=== PATIENT | female | born 1945 | race Caucasian/White ===

== ENCOUNTER 2020-02-08 22:36 | Inpatient (IN) | payer MEDICARE ==
[~2020-02-08] VITALS: Ht 172.7 cm; Wt 70.8 kg
[2020-02-09 01:50] LABS: BASOPHILS % 0.5 % (0.0-2.0); EOSINOPHILS % 0.2 % (0.0-5.0); HEMATOCRIT. 21.8 % (36.0-48.0); HEMOGLOBIN. 7.3 g/dL (12.0-16.0); LYMPHOCYTES % 13.3 % (20.0-50.0); MEAN CORPUSCULAR HEMOGLOBIN 30.2 pg (28.0-32.0); MEAN CORPUSCULAR VOLUME 89.9 fL (81.0-99.0); MEAN PLATELET VOLUME 8.4 fl (7.4-10.4); MONOCYTES % 5.6 % (2.0-8.0); NEUTROPHILS % 80.4 % (40.0-76.0); PLATELET 157 x1000/uL (130-400); RED BLOOD CELL COUNT 2.43 mill/uL (4.2-5.4)
[2020-02-09 01:55] LABS: CHLORIDE 100 mEq/L (98-107)
[2020-02-09 02:35] LABS: PROTHROMBIN TIME 10.9 sec (9.6-11.0)
[2020-02-09] MEDS ORDERED: GUAIFENESIN/CODEINE 200-20MG/10ML UDC PO PRN ×2 (13:00→14:28)
[2020-02-09] MEDS: INSULIN LISPRO 100 UNITS/ML SUBCUT SCH ×2 (13:20→19:48)
[2020-02-09] MEDS: BLOOD SUGAR DIAGNOSTIC STRIP TEST SCH ×2 (13:45→19:48)
[2020-02-09] MEDS ORDERED: GUAIFENESIN/CODEINE 100-10MG/5ML UDC PO PRN (14:00)
[2020-02-09 14:23] LABS: BG BASE EXCESS -5.8 mmol/L (-2.0-2.0); BG CARBOXYHEMOGLOBIN 0.8 % (0.5-1.5); BG FRACTION INSPIRED OXYGEN 100; BG HCO3 ACT 18.8 mmol/L (22.0-26.0); BG METHEMOGLOBIN 0.1 % (0.0-1.5); BG OXYGEN SATURATION 83.9 % (92.0-98.5); BG OXYHEMOGLOBIN 83.1 % (94.0-97.0); BG PCO2 32.9 mmHg (35.0-45.0); BG PH 7.374 (7.350-7.450); BG PO2 51.5 mmHg (75.0-100.0); BG SAMPLE SITE RIGHT RADIAL; BG TOTAL HEMOGLOBIN 8.1 g/dL (12.0-18.0); BG VENT MODE MASK - NRB
[2020-02-09] MEDS ORDERED: HYDROCODONE/ACETAMINOPHEN 5/325MG TABLET PO PRN (15:45)
[2020-02-09] MEDS ORDERED: ACETAMINOPHEN 325MG TABLET PO PRN (15:45)
[2020-02-09] MEDS ORDERED: ONDANSETRON HCL 4MG/2ML INJ IV PRN (15:45)
[2020-02-09] MEDS ORDERED: DOCUSATE SODIUM 100MG CAPSULE PO PRN (15:45)
[2020-02-09] MEDS ORDERED: CEFEPIME 1,000 MG in DEXTROSE 5% WATER 50 ML IV SCH (16:00)
[2020-02-09] MEDS ORDERED: ENOXAPARIN 30MG/0.3ML SYR SUBCUT SCH (16:30)
[2020-02-09 19:12] LABS: BG BASE EXCESS -6.4 mmol/L (-2.0-2.0); BG CARBOXYHEMOGLOBIN 0.1 % (0.5-1.5); BG DEOXYHEMOGLOBIN 24.4 % (0.0-5.0); BG FRACTION INSPIRED OXYGEN 100; BG HCO3 ACT 17.9 mmol/L (22.0-26.0); BG METHEMOGLOBIN 0.3 % (0.0-1.5); BG OXYGEN SATURATION 75.5 % (92.0-98.5); BG OXYHEMOGLOBIN 75.2 % (94.0-97.0); BG PCO2 30.7 mmHg (35.0-45.0); BG PH 7.383 (7.350-7.450); BG PO2 42.5 mmHg (75.0-100.0); BG SAMPLE SITE RIGHT RADIAL; BG TOTAL HEMOGLOBIN 8.7 g/dL (12.0-18.0); BG VENT MODE HIGH FLOW
[2020-02-09] MEDS: DEXAMETHASONE 10 MG/ML VIAL IV SCH (19:52)
[2020-02-10] MEDS: HYDROCORTISONE SOD SUCCINATE 100 MG/2 ML VIAL IV SCH ×4 (02:07→22:19)
[2020-02-10] MEDS: BLOOD SUGAR DIAGNOSTIC STRIP TEST SCH ×5 (02:07→21:00)
[2020-02-10] MEDS: INSULIN LISPRO 100 UNITS/ML SUBCUT SCH ×5 (02:09→22:18)
[2020-02-10] MEDS: INSULIN GLARGINE UD 100 UNITS/ML SYR SUBCUT SCH ×3 (03:50→22:00)
[2020-02-10 05:12] LABS: BASOPHILS % 0.1 % (0.0-2.0); HEMATOCRIT. 25.6 % (36.0-48.0); HEMOGLOBIN. 8.6 g/dL (12.0-16.0); LYMPHOCYTES % 7.8 % (20.0-50.0); MEAN CORPUSCULAR HEMOGLOBIN 30.2 pg (28.0-32.0); MEAN CORPUSCULAR VOLUME 89.4 fL (81.0-99.0); MEAN PLATELET VOLUME 8.1 fl (7.4-10.4); MONOCYTES % 4.3 % (2.0-8.0); NEUTROPHILS % 87.8 % (40.0-76.0); PLATELET 184 x1000/uL (130-400); RED BLOOD CELL COUNT 2.86 mill/uL (4.2-5.4)
[2020-02-10 05:14] LABS: CHLORIDE 100 mEq/L (98-107)
[2020-02-10 05:23] LABS: PHOSPHORUS 6.1 mg/dL (2.5-4.9)
[2020-02-10] MEDS ORDERED: SODIUM BICARBONATE 8.4% 1 MEQ/ML 50ML SYR IV NR (05:30)
[2020-02-10] MEDS: DEXAMETHASONE 10 MG/ML VIAL IV SCH (09:11)
[2020-02-10 10:40] LABS: BG BASE EXCESS -5.1 mmol/L (-2.0-2.0); BG CARBOXYHEMOGLOBIN 0.3 % (0.5-1.5); BG DEOXYHEMOGLOBIN 18.8 % (0.0-5.0); BG FRACTION INSPIRED OXYGEN 99.9; BG HCO3 ACT 18.9 mmol/L (22.0-26.0); BG METHEMOGLOBIN 0.2 % (0.0-1.5); BG OXYGEN SATURATION 81.1 % (92.0-98.5); BG OXYHEMOGLOBIN 80.7 % (94.0-97.0); BG PH 7.402 (7.350-7.450); BG SAMPLE SITE LEFT RADIAL; BG TOTAL HEMOGLOBIN 9.6 g/dL (12.0-18.0); BG VENT MODE MASK - NRB
[2020-02-10 14:13] VITALS: BP 162/67
[2020-02-10 14:52] LABS: BG BASE EXCESS -4.4 mmol/L (-2.0-2.0); BG CARBOXYHEMOGLOBIN 0.3 % (0.5-1.5); BG DEOXYHEMOGLOBIN 1.6 % (0.0-5.0); BG FRACTION INSPIRED OXYGEN 100; BG HCO3 ACT 20.5 mmol/L (22.0-26.0); BG OXYGEN SATURATION 98.4 % (92.0-98.5); BG OXYHEMOGLOBIN 98.1 % (94.0-97.0); BG PCO2 36.7 mmHg (35.0-45.0); BG PH 7.365 (7.350-7.450); BG PO2 143.1 mmHg (75.0-100.0); BG SAMPLE SITE RIGHT RADIAL; BG TOTAL HEMOGLOBIN 9.8 g/dL (12.0-18.0); BG TOTAL RESPIRATORY RATE 32 b/min; BG VENT MODE MASK - BIPAP
[2020-02-10 16:00] VITALS: BP 154/64
[2020-02-10 16:14] VITALS: BP 105/67
[2020-02-10] MEDS: ERGOCALCIFEROL 50000UNITS CAPSULE PO SCH (19:06)
[2020-02-10] MEDS: ASPIRIN 81MG EC TABLET PO SCH (19:06)
[2020-02-10] MEDS: CEFEPIME 1,000 MG in DEXTROSE 5% WATER 50 ML IV SCH (19:08)
[2020-02-10] MEDS: ENOXAPARIN 80MG/0.8ML SYR SUBCUT SCH (19:08)
[2020-02-10 20:00] VITALS: BP 165/68
[2020-02-10] MEDS: ASCORBIC ACID 500 MG TABLET PO SCH (22:18)
[2020-02-10] MEDS: CLONIDINE 0.1MG TABLET PO PRN (22:57)
[2020-02-11] VITALS: BP 146/66
[2020-02-11 04:00] VITALS: BP 150/63
[2020-02-11] MEDS: HYDROCORTISONE SOD SUCCINATE 100 MG/2 ML VIAL IV SCH ×3 (05:39→23:03)
[2020-02-11 06:17] LABS: HEMATOCRIT. 26.8 % (36.0-48.0); HEMOGLOBIN. 8.7 g/dL (12.0-16.0); MEAN CORPUSCULAR HEMOGLOBIN 29.3 pg (28.0-32.0); MEAN CORPUSCULAR VOLUME 89.8 fL (81.0-99.0); MEAN PLATELET VOLUME 8.4 fl (7.4-10.4); PLATELET 190 x1000/uL (130-400); RED BLOOD CELL COUNT 2.99 mill/uL (4.2-5.4); RED CELL DISTRIBUTION WIDTH 15.2 % (11.6-14.6)
[2020-02-11] MEDS ORDERED: INSULIN LISPRO 100 UNITS/ML SUBCUT SCH (07:00)
[2020-02-11] MEDS: BLOOD SUGAR DIAGNOSTIC STRIP TEST SCH ×4 (07:08→21:00)
[2020-02-11] MEDS: INSULIN LISPRO 100 UNITS/ML SUBCUT SCH ×7 (07:11→23:05)
[2020-02-11] MEDS: INSULIN GLARGINE UD 100 UNITS/ML SYR SUBCUT SCH ×3 (07:13→23:06)
[2020-02-11 08:00] VITALS: BP 154/60
[2020-02-11] MEDS: ASPIRIN 81MG EC TABLET PO SCH (08:54)
[2020-02-11] MEDS: DEXAMETHASONE 10 MG/ML VIAL IV SCH (08:54)
[2020-02-11] MEDS: ENOXAPARIN 80MG/0.8ML SYR SUBCUT SCH (08:54)
[2020-02-11] MEDS: ASCORBIC ACID 500 MG TABLET PO SCH ×2 (08:54→23:03)
[2020-02-11] MEDS ORDERED: POTASSIUM CHLORIDE 10MEQ TABLET SR PO NR (10:00)
[2020-02-11] MEDS ORDERED: INSULIN GLARGINE UD 100 UNITS/ML SYR SUBCUT SCH (10:00)
[2020-02-11 12:00] VITALS: BP 152/53
[2020-02-11 15:01] LABS: PLATELET ESTIMATE NORMAL
[2020-02-11 16:00] VITALS: BP 165/71
[2020-02-11] MEDS: CEFEPIME 1,000 MG in DEXTROSE 5% WATER 50 ML IV SCH (17:26)
[2020-02-11 20:00] VITALS: BP 181/73
[2020-02-11] MEDS: CLONIDINE 0.1MG TABLET PO PRN (23:24)
[2020-02-12] VITALS: BP 143/67
[2020-02-12 04:00] VITALS: BP 184/74
[2020-02-12 05:30] VITALS: BP 120/61
[2020-02-12 06:18] LABS: MEAN CORPUSCULAR HEMOGLOBIN 30.1 pg (28.0-32.0); MEAN PLATELET VOLUME 8.3 fl (7.4-10.4); PLATELET 213 x1000/uL (130-400); RED BLOOD CELL COUNT 2.67 mill/uL (4.2-5.4)
[2020-02-12] MEDS: HYDROCORTISONE SOD SUCCINATE 100 MG/2 ML VIAL IV SCH ×3 (06:45→22:43)
[2020-02-12] MEDS: BLOOD SUGAR DIAGNOSTIC STRIP TEST SCH ×4 (06:46→21:00)
[2020-02-12] MEDS: INSULIN LISPRO 100 UNITS/ML SUBCUT SCH ×6 (06:56→22:41)
[2020-02-12] MEDS ORDERED: POTASSIUM CHLORIDE 20MEQ TABLET SR PO NR (09:00)
[2020-02-12] MEDS: ASCORBIC ACID 500 MG TABLET PO SCH ×2 (09:38→22:40)
[2020-02-12] MEDS: ASPIRIN 81MG EC TABLET PO SCH (09:38)
[2020-02-12 11:34] LABS: BG BASE EXCESS -4.4 mmol/L (-2.0-2.0); BG CARBOXYHEMOGLOBIN 0.5 % (0.5-1.5); BG DEOXYHEMOGLOBIN 0.7 % (0.0-5.0); BG FRACTION INSPIRED OXYGEN 100; BG HCO3 ACT 20.6 mmol/L (22.0-26.0); BG METHEMOGLOBIN 0.3 % (0.0-1.5); BG OXYGEN SATURATION 99.3 % (92.0-98.5); BG OXYHEMOGLOBIN 98.5 % (94.0-97.0); BG PCO2 37.4 mmHg (35.0-45.0); BG PH 7.359 (7.350-7.450); BG SAMPLE SITE RIGHT RADIAL; BG TOTAL HEMOGLOBIN 8.2 g/dL (12.0-18.0); BG TOTAL RESPIRATORY RATE 35 b/min; BG VENT MODE MASK - BIPAP
[2020-02-12] MEDS: ENOXAPARIN 80MG/0.8ML SYR SUBCUT SCH (11:36)
[2020-02-12] MEDS: DEXAMETHASONE 10 MG/ML VIAL IV SCH (11:36)
[2020-02-12] MEDS: INSULIN GLARGINE UD 100 UNITS/ML SYR SUBCUT SCH ×2 (11:37→22:56)
[2020-02-12 12:00] VITALS: BP 146/67
[2020-02-12] MEDS: ACETAMINOPHEN 325MG TABLET PO PRN (13:17)
[2020-02-12 16:00] VITALS: BP 208/65
[2020-02-12] MEDS: CEFEPIME 1,000 MG in DEXTROSE 5% WATER 50 ML IV SCH (16:18)
[2020-02-12 17:03] LABS: PLATELET ESTIMATE NORMAL
[2020-02-12] MEDS: METOCLOPRAMIDE HCL 10MG/2ML VIAL IV SCH (19:10)
[2020-02-12 20:00] VITALS: BP 184/69
[2020-02-12] MEDS: CLONIDINE 0.1MG TABLET PO PRN (22:40)
[2020-02-13 00:12] VITALS: BP 107/56
[2020-02-13] MEDS: LORAZEPAM 0.5MG TABLET PO PRN (02:49)
[2020-02-13] MEDS: METOCLOPRAMIDE HCL 10MG/2ML VIAL IV SCH ×4 (02:50→19:07)
[2020-02-13 04:00] VITALS: BP 154/57
[2020-02-13] MEDS: HYDROCORTISONE SOD SUCCINATE 100 MG/2 ML VIAL IV SCH ×2 (06:02→13:46)
[2020-02-13] MEDS: BLOOD SUGAR DIAGNOSTIC STRIP TEST SCH ×4 (06:02→21:26)
[2020-02-13] MEDS: INSULIN LISPRO 100 UNITS/ML SUBCUT SCH ×4 (06:22→22:00)
[2020-02-13 06:40] LABS: HEMATOCRIT. 21.9 % (36.0-48.0); HEMOGLOBIN. 7.2 g/dL (12.0-16.0); MEAN CORPUSCULAR HEMOGLOBIN 30.3 pg (28.0-32.0); MEAN CORPUSCULAR VOLUME 92.2 fL (81.0-99.0); MEAN PLATELET VOLUME 8.6 fl (7.4-10.4); PLATELET 264 x1000/uL (130-400); RED BLOOD CELL COUNT 2.37 mill/uL (4.2-5.4); RED CELL DISTRIBUTION WIDTH 15.2 % (11.6-14.6)
[2020-02-13 06:57] LABS: PHOSPHORUS 6.2 mg/dL (2.5-4.9)
[2020-02-13] MEDS ORDERED: INSULIN LISPRO 100 UNITS/ML SUBCUT NR (07:45)
[2020-02-13 08:00] VITALS: BP 141/61
[2020-02-13] MEDS: DEXAMETHASONE 10 MG/ML VIAL IV SCH (08:59)
[2020-02-13] MEDS: ASPIRIN 81MG EC TABLET PO SCH (08:59)
[2020-02-13] MEDS: ENOXAPARIN 80MG/0.8ML SYR SUBCUT SCH (08:59)
[2020-02-13] MEDS: ASCORBIC ACID 500 MG TABLET PO SCH ×2 (09:00→21:59)
[2020-02-13] MEDS: INSULIN GLARGINE UD 100 UNITS/ML SYR SUBCUT SCH ×2 (10:30→22:51)
[2020-02-13 12:00] VITALS: BP 164/68
[2020-02-13] MEDS ORDERED: AMLODIPINE 5MG TABLET PO NR (13:30)
[2020-02-13 16:00] VITALS: BP 159/66
[2020-02-13] MEDS: PANTOPRAZOLE SODIUM 40 MG/VIAL IV SCH (19:06)
[2020-02-13] MEDS: CEFEPIME 1,000 MG in DEXTROSE 5% WATER 50 ML IV SCH (19:06)
[2020-02-13 20:00] VITALS: BP 168/71
[2020-02-13] MEDS: AMLODIPINE 5MG TABLET PO SCH (21:59)
[2020-02-13 22:36] LABS: PLATELET ESTIMATE NORMAL
[2020-02-14] VITALS (8 sets, daily range): BP systolic 94–177; BP diastolic 73–95
[2020-02-14] MEDS: LORAZEPAM 0.5MG TABLET PO PRN (00:58)
[2020-02-14] MEDS: METOCLOPRAMIDE HCL 10MG/2ML VIAL IV SCH ×4 (00:58→18:39)
[2020-02-14] MEDS: CLONIDINE 0.1MG TABLET PO PRN (03:29)
[2020-02-14] MEDS ORDERED: INSULIN LISPRO 100 UNITS/ML SUBCUT NR (06:45)
[2020-02-14] MEDS: BLOOD SUGAR DIAGNOSTIC STRIP TEST SCH ×4 (06:46→21:34)
[2020-02-14] MEDS: INSULIN LISPRO 100 UNITS/ML SUBCUT SCH ×4 (06:55→22:16)
[2020-02-14 08:07] LABS: HEMATOCRIT. 21.3 % (36.0-48.0); MEAN CORPUSCULAR HEMOGLOBIN 29.3 pg (28.0-32.0); MEAN CORPUSCULAR VOLUME 89.7 fL (81.0-99.0); MEAN PLATELET VOLUME 8.1 fl (7.4-10.4); PLATELET 306 x1000/uL (130-400); RED BLOOD CELL COUNT 2.37 mill/uL (4.2-5.4); RED CELL DISTRIBUTION WIDTH 15.4 % (11.6-14.6)
[2020-02-14 08:17] LABS: CHLORIDE 96 mEq/L (98-107)
[2020-02-14 08:29] LABS: PHOSPHORUS 4.4 mg/dL (2.5-4.9)
[2020-02-14] MEDS: AMLODIPINE 5MG TABLET PO SCH ×2 (09:45→22:17)
[2020-02-14] MEDS: PANTOPRAZOLE SODIUM 40 MG/VIAL IV SCH ×2 (09:45→22:13)
[2020-02-14] MEDS: DEXAMETHASONE 10 MG/ML VIAL IV SCH (09:45)
[2020-02-14] MEDS: ASCORBIC ACID 500 MG TABLET PO SCH ×2 (11:06→22:16)
[2020-02-14] MEDS: INSULIN GLARGINE UD 100 UNITS/ML SYR SUBCUT SCH ×2 (11:06→22:17)
[2020-02-14] MEDS: HYDRALAZINE HCL 25MG TABLET PO SCH ×2 (11:06→22:17)
[2020-02-14] MEDS: CEFEPIME 1,000 MG in DEXTROSE 5% WATER 50 ML IV SCH (18:38)
[2020-02-14 19:17] LABS: PLATELET ESTIMATE NORMAL
[2020-02-14 20:50] LABS: INR 1.1; PROTHROMBIN TIME 11.4 sec (9.6-11.0)
[2020-02-14] MEDS ORDERED: EPOETIN ALFA 10000UNITS/ML VIAL SUBCUT SCH (21:00)
[2020-02-14 21:06] LABS: HEMATOCRIT 28.5 % (36.0-48.0); HEMOGLOBIN 9.2 g/dL (12.0-16.0)
[2020-02-15] VITALS: BP 141/85
[2020-02-15] MEDS: METOCLOPRAMIDE HCL 10MG/2ML VIAL IV SCH ×4 (00:19→17:39)
[2020-02-15 04:00] VITALS: BP 171/88
[2020-02-15] MEDS: LORAZEPAM 0.5MG TABLET PO PRN ×3 (04:55→22:02)
[2020-02-15 05:42] LABS: PHOSPHORUS 4.4 mg/dL (2.5-4.9)
[2020-02-15] MEDS: CLONIDINE 0.1MG TABLET PO PRN (06:39)
[2020-02-15] MEDS: INSULIN LISPRO 100 UNITS/ML SUBCUT SCH ×4 (06:40→20:54)
[2020-02-15] MEDS: BLOOD SUGAR DIAGNOSTIC STRIP TEST SCH ×4 (06:40→20:55)
[2020-02-15 07:06] LABS: MEAN CORPUSCULAR HEMOGLOBIN 29.6 pg (28.0-32.0); MEAN PLATELET VOLUME 8.4 fl (7.4-10.4); PLATELET 341 x1000/uL (130-400); RED BLOOD CELL COUNT 3.03 mill/uL (4.2-5.4)
[2020-02-15 08:00] VITALS: BP 127/65
[2020-02-15] MEDS: DEXAMETHASONE 10 MG/ML VIAL IV SCH (09:01)
[2020-02-15] MEDS: PANTOPRAZOLE SODIUM 40 MG/VIAL IV SCH ×2 (09:01→17:38)
[2020-02-15] MEDS: AMLODIPINE 5MG TABLET PO SCH (09:02)
[2020-02-15] MEDS: HYDRALAZINE HCL 25MG TABLET PO SCH (09:02)
[2020-02-15] MEDS: ASCORBIC ACID 500 MG TABLET PO SCH ×2 (09:03→20:54)
[2020-02-15] MEDS ORDERED: INSULIN GLARGINE UD 100 UNITS/ML SYR SUBCUT SCH (10:00)
[2020-02-15] MEDS: HYDRALAZINE HCL 50MG TABLET PO SCH ×2 (11:30→13:17)
[2020-02-15 12:00] VITALS: BP 115/57
[2020-02-15] MEDS ORDERED: POTASSIUM CHLORIDE 20MEQ TABLET SR PO NR (13:00)
[2020-02-15] MEDS ORDERED: DILTIAZEM HCL 5MG/ML 5ML VIAL IV NR (13:15)
[2020-02-15] MEDS ORDERED: POTASSIUM CHLORIDE 20MEQ/PACKET PO SCH (14:00)
[2020-02-15] MEDS ORDERED: DILTIAZEM HCL 5MG/ML 5ML VIAL IV SCH (14:00)
[2020-02-15] MEDS ORDERED: ENOXAPARIN 60MG/0.6ML SYR SUBCUT SCH (14:00)
[2020-02-15 14:25] LABS: NUCLEATED RED BLOOD CELLS 5 /100 WBC; PLATELET ESTIMATE NORMAL
[2020-02-15 16:00] VITALS: BP 126/54
[2020-02-15 16:20] LABS: VITAMIN B12 SERUM 1278 pg/mL (211-911)
[2020-02-15 16:48] LABS: FERRITIN 5552 ng/mL (10-291)
[2020-02-15 17:01] LABS: FOLIC ACID (FOLATE) SERUM 5.3 ng/mL (>5.38)
[2020-02-15] MEDS ORDERED: KCL 20MEQ/100ML PREMIX 100 ML IV NR (17:30)
[2020-02-15] MEDS: DILTIAZEM HCL 60MG TABLET PO SCH (17:40)
[2020-02-15] MEDS: MEROPENEM 500 MG in SODIUM CHLORIDE 0.9% 50 ML IV SCH (18:30)
[2020-02-15 20:00] VITALS: BP 134/70
[2020-02-15] MEDS: INSULIN GLARGINE UD 100 UNITS/ML SYR SUBCUT SCH (22:49)
[2020-02-16] VITALS (44 sets, daily range): BP systolic 55–178; BP diastolic 29–98
[2020-02-16] MEDS: DILTIAZEM HCL 60MG TABLET PO SCH (00:05)
[2020-02-16] MEDS: METOCLOPRAMIDE HCL 10MG/2ML VIAL IV SCH ×4 (00:06→17:29)
[2020-02-16] MEDS ORDERED: DILTIAZEM HCL 5MG/ML 5ML VIAL IV SCH ×2 (00:45→08:00)
[2020-02-16] MEDS ORDERED: DILTIAZEM HCL 5MG/ML 5ML VIAL IV PRN (04:00)
[2020-02-16] MEDS: LORAZEPAM 2MG/ML CPJ IV PRN ×2 (05:08→10:24)
[2020-02-16 06:12] LABS: HEMATOCRIT. 24.2 % (36.0-48.0); HEMOGLOBIN. 7.7 g/dL (12.0-16.0); MEAN CORPUSCULAR HEMOGLOBIN 28.9 pg (28.0-32.0); MEAN CORPUSCULAR VOLUME 90.3 fL (81.0-99.0); MEAN PLATELET VOLUME 8.7 fl (7.4-10.4); PLATELET 277 x1000/uL (130-400); RED BLOOD CELL COUNT 2.68 mill/uL (4.2-5.4); RED CELL DISTRIBUTION WIDTH 15.4 % (11.6-14.6)
[2020-02-16] MEDS: INSULIN LISPRO 100 UNITS/ML SUBCUT SCH ×4 (08:10→21:47)
[2020-02-16] MEDS: BLOOD SUGAR DIAGNOSTIC STRIP TEST SCH ×5 (08:39→21:39)
[2020-02-16] MEDS ORDERED: DEXT 5%/0.45% NACL KCL 20MEQ/L 1,000 ML IV ONE (08:45)
[2020-02-16] MEDS ORDERED: INSULIN LISPRO 100 UNITS/ML SUBCUT NR (09:00)
[2020-02-16] MEDS ORDERED: POTASSIUM CHLORIDE INJ 20 MEQ in DEXT 5% WATER 250 ML IV ONE (09:00)
[2020-02-16] MEDS: ASCORBIC ACID 500 MG TABLET PO SCH ×2 (09:00→21:48)
[2020-02-16] MEDS: PANTOPRAZOLE SODIUM 40 MG/VIAL IV SCH ×2 (09:57→17:29)
[2020-02-16] MEDS: DEXAMETHASONE 10 MG/ML VIAL IV SCH (09:57)
[2020-02-16] MEDS: INSULIN GLARGINE UD 100 UNITS/ML SYR SUBCUT SCH ×2 (10:00→22:20)
[2020-02-16] MEDS ORDERED: KCL 20MEQ/100ML PREMIX 100 ML IV NR (10:30)
[2020-02-16] MEDS ORDERED: FENTANYL CITRATE/PF 1,000 MCG in SODIUM CHLORIDE 0.9% 80 ML IV PRN (12:45)
[2020-02-16] MEDS: PROPOFOL 10MG/ML 100ML 100 ML IV PRN ×2 (13:33→23:57)
[2020-02-16] MEDS: DILTIAZEM HCL 125 MG in DEXT 5% WATER 100 ML IV PRN (14:15)
[2020-02-16] MEDS ORDERED: POTASSIUM CHLORIDE 20MEQ/PACKET PO NR (14:45)
[2020-02-16 15:26] LABS: BG BASE EXCESS 0.1 mmol/L (-2.0-2.0); BG CARBOXYHEMOGLOBIN 0.3 % (0.5-1.5); BG DEOXYHEMOGLOBIN 1.1 % (0.0-5.0); BG FRACTION INSPIRED OXYGEN 100; BG HCO3 ACT 26.8 mmol/L (22.0-26.0); BG METHEMOGLOBIN 0.2 % (0.0-1.5); BG OXYGEN SATURATION 98.9 % (92.0-98.5); BG OXYHEMOGLOBIN 98.4 % (94.0-97.0); BG PCO2 54.6 mmHg (35.0-45.0); BG PH 7.309 (7.350-7.450); BG PO2 248.1 mmHg (75.0-100.0); BG SAMPLE SITE RIGHT RADIAL; BG TOTAL HEMOGLOBIN 9.3 g/dL (12.0-18.0); BG VENT MODE VENT - AC
[2020-02-16 17:17] LABS: PLATELET ESTIMATE NORMAL
[2020-02-16] MEDS: FENTANYL CITRATE 2,500 MCG in SODIUM CHLORIDE 0.9% 200 ML IV PRN (17:56)
[2020-02-16] MEDS ORDERED: DILTIAZEM HCL 60MG TABLET PO SCH (18:00)
[2020-02-16] MEDS: DILTIAZEM HCL 30MG TABLET PO SCH (18:00)
[2020-02-16] MEDS: MEROPENEM 500 MG in SODIUM CHLORIDE 0.9% 50 ML IV SCH ×2 (18:44→19:30)
[2020-02-16] MEDS: PHENYLEPHRINE 50 MG in DEXT 5% WATER 245 ML IV PRN (21:27)
[2020-02-16] MEDS: EPOETIN ALFA-EPBX 10,000 UNIT/ML VIAL SUBCUT SCH (21:48)
[2020-02-17] VITALS (96 sets, daily range): BP systolic 91–151; BP diastolic 41–80
[2020-02-17] MEDS: METOCLOPRAMIDE HCL 10MG/2ML VIAL IV SCH ×4 (00:01→17:45)
[2020-02-17] MEDS: DILTIAZEM HCL 30MG TABLET PO SCH ×4 (06:00→17:45)
[2020-02-17 06:16] LABS: MEAN CORPUSCULAR HEMOGLOBIN 29.7 pg (28.0-32.0); MEAN CORPUSCULAR VOLUME 91.9 fL (81.0-99.0); MEAN PLATELET VOLUME 8.7 fl (7.4-10.4); PLATELET 209 x1000/uL (130-400); RED BLOOD CELL COUNT 2.24 mill/uL (4.2-5.4); RED CELL DISTRIBUTION WIDTH 15.4 % (11.6-14.6)
[2020-02-17 06:24] LABS: HEMATOCRIT. 20.6 % (36.0-48.0); HEMOGLOBIN. 6.7 g/dL (12.0-16.0)
[2020-02-17 06:38] LABS: CHLORIDE 101 mEq/L (98-107)
[2020-02-17] MEDS: BLOOD SUGAR DIAGNOSTIC STRIP TEST SCH ×4 (08:07→21:24)
[2020-02-17] MEDS: PANTOPRAZOLE SODIUM 40 MG/VIAL IV SCH ×2 (08:55→17:43)
[2020-02-17] MEDS: INSULIN LISPRO 100 UNITS/ML SUBCUT SCH ×4 (08:55→21:36)
[2020-02-17] MEDS: DEXAMETHASONE 10 MG/ML VIAL IV SCH (08:55)
[2020-02-17] MEDS: ASCORBIC ACID 500 MG TABLET PO SCH ×2 (08:55→21:32)
[2020-02-17 09:58] LABS: BG BASE EXCESS 1.4 mmol/L (-2.0-2.0); BG CARBOXYHEMOGLOBIN 2.2 % (0.5-1.5); BG DEOXYHEMOGLOBIN 2.4 % (0.0-5.0); BG FRACTION INSPIRED OXYGEN 100; BG HCO3 ACT 27.9 mmol/L (22.0-26.0); BG METHEMOGLOBIN 0.2 % (0.0-1.5); BG OXYGEN SATURATION 97.5 % (92.0-98.5); BG OXYHEMOGLOBIN 95.2 % (94.0-97.0); BG PCO2 56.7 mmHg (35.0-45.0); BG PO2 104.2 mmHg (75.0-100.0); BG SAMPLE SITE RIGHT RADIAL; BG TOTAL HEMOGLOBIN 6.9 g/dL (12.0-18.0); BG VENT MODE VENT - AC
[2020-02-17] MEDS: INSULIN GLARGINE UD 100 UNITS/ML SYR SUBCUT SCH ×2 (10:57→21:38)
[2020-02-17] MEDS: FENTANYL CITRATE 2,500 MCG in SODIUM CHLORIDE 0.9% 200 ML IV PRN (11:18)
[2020-02-17] MEDS: ERGOCALCIFEROL 50000UNITS CAPSULE PO SCH (12:43)
[2020-02-17 13:05] LABS: PLATELET ESTIMATE NORMAL
[2020-02-17] MEDS: MIDAZOLAM HCL 100 MG in DEXT 5% WATER 80 ML IV PRN (13:29)
[2020-02-17] MEDS: PHENYLEPHRINE 50 MG in DEXT 5% WATER 245 ML IV PRN (15:23)
[2020-02-17 17:14] LABS: HEMATOCRIT 23.8 % (36.0-48.0); HEMOGLOBIN 7.6 g/dL (12.0-16.0)
[2020-02-17] MEDS: MEROPENEM 500 MG in SODIUM CHLORIDE 0.9% 50 ML IV SCH (17:43)
[2020-02-18] VITALS (98 sets, daily range): BP systolic 76–132; BP diastolic 42–75
[2020-02-18] MEDS: FENTANYL CITRATE 2,500 MCG in SODIUM CHLORIDE 0.9% 200 ML IV PRN ×2 (01:16→16:39)
[2020-02-18 05:34] LABS: HEMATOCRIT. 25.3 % (36.0-48.0); MEAN CORPUSCULAR VOLUME 91.3 fL (81.0-99.0); MEAN PLATELET VOLUME 9.3 fl (7.4-10.4); PLATELET 124 x1000/uL (130-400); RED BLOOD CELL COUNT 2.77 mill/uL (4.2-5.4); RED CELL DISTRIBUTION WIDTH 17.1 % (11.6-14.6)
[2020-02-18 05:51] LABS: CHLORIDE 98 mEq/L (98-107)
[2020-02-18] MEDS: METOCLOPRAMIDE HCL 10MG/2ML VIAL IV SCH ×4 (06:00→18:00)
[2020-02-18] MEDS: DILTIAZEM HCL 30MG TABLET PO SCH ×4 (06:00→21:40)
[2020-02-18] MEDS: MIDAZOLAM HCL 100 MG in DEXT 5% WATER 80 ML IV PRN (07:39)
[2020-02-18] MEDS: BLOOD SUGAR DIAGNOSTIC STRIP TEST SCH ×4 (07:51→21:43)
[2020-02-18] MEDS: PANTOPRAZOLE SODIUM 40 MG/VIAL IV SCH ×2 (08:16→17:52)
[2020-02-18] MEDS: INSULIN LISPRO 100 UNITS/ML SUBCUT SCH ×4 (08:16→21:58)
[2020-02-18] MEDS: DEXAMETHASONE 10 MG/ML VIAL IV SCH (08:16)
[2020-02-18] MEDS: ASCORBIC ACID 500 MG TABLET PO SCH ×2 (08:16→21:50)
[2020-02-18 09:11] LABS: BG BASE EXCESS 0.1 mmol/L (-2.0-2.0); BG CARBOXYHEMOGLOBIN 0.8 % (0.5-1.5); BG DEOXYHEMOGLOBIN 6.7 % (0.0-5.0); BG FRACTION INSPIRED OXYGEN 80; BG HCO3 ACT 26.3 mmol/L (22.0-26.0); BG METHEMOGLOBIN 0.3 % (0.0-1.5); BG OXYGEN SATURATION 93.2 % (92.0-98.5); BG OXYHEMOGLOBIN 92.2 % (94.0-97.0); BG PCO2 50.7 mmHg (35.0-45.0); BG PH 7.332 (7.350-7.450); BG PO2 71.6 mmHg (75.0-100.0); BG SAMPLE SITE RIGHT RADIAL; BG TOTAL HEMOGLOBIN 8.8 g/dL (12.0-18.0); BG TOTAL RESPIRATORY RATE 26 b/min; BG VENT MODE VENT - AC/VC
[2020-02-18] MEDS: INSULIN GLARGINE UD 100 UNITS/ML SYR SUBCUT SCH ×2 (09:57→21:53)
[2020-02-18 11:37] LABS: BG BASE EXCESS -3.2 mmol/L (-2.0-2.0); BG CARBOXYHEMOGLOBIN 0.7 % (0.5-1.5); BG DEOXYHEMOGLOBIN 6.1 % (0.0-5.0); BG FRACTION INSPIRED OXYGEN 100; BG METHEMOGLOBIN 0.3 % (0.0-1.5); BG OXYGEN SATURATION 93.8 % (92.0-98.5); BG OXYHEMOGLOBIN 92.9 % (94.0-97.0); BG PCO2 62.8 mmHg (35.0-45.0); BG PH 7.217 (7.350-7.450); BG PO2 82.6 mmHg (75.0-100.0); BG SAMPLE SITE RIGHT BRACHIAL; BG VENT MODE VENT - AC
[2020-02-18 13:47] LABS: NUCLEATED RED BLOOD CELLS 3 /100 WBC
[2020-02-18 13:48] LABS: PLATELET ESTIMATE SLIGHTLY DECREASED
[2020-02-18] MEDS ORDERED: INSULIN GLARGINE UD 100 UNITS/ML SYR SUBCUT NR (14:00)
[2020-02-18] MEDS: MEROPENEM 500 MG in SODIUM CHLORIDE 0.9% 50 ML IV SCH (17:53)
[2020-02-19] VITALS (93 sets, daily range): BP systolic 83–142; BP diastolic 39–70
[2020-02-19] MEDS: METOCLOPRAMIDE HCL 10MG/2ML VIAL IV SCH ×4 (01:46→18:25)
[2020-02-19] MEDS: DILTIAZEM HCL 30MG TABLET PO SCH ×3 (04:54→22:31)
[2020-02-19 05:21] LABS: BG BASE EXCESS -1.7 mmol/L (-2.0-2.0); BG CARBOXYHEMOGLOBIN 0.3 % (0.5-1.5); BG DEOXYHEMOGLOBIN 1.1 % (0.0-5.0); BG FRACTION INSPIRED OXYGEN 100; BG HCO3 ACT 26.4 mmol/L (22.0-26.0); BG METHEMOGLOBIN 0.1 % (0.0-1.5); BG OXYGEN SATURATION 98.9 % (92.0-98.5); BG OXYHEMOGLOBIN 98.5 % (94.0-97.0); BG PCO2 63.7 mmHg (35.0-45.0); BG PH 7.235 (7.350-7.450); BG PO2 204.7 mmHg (75.0-100.0); BG SAMPLE SITE RIGHT RADIAL; BG TOTAL HEMOGLOBIN 9.7 g/dL (12.0-18.0); BG VENT MODE VENT - AC
[2020-02-19 06:18] LABS: HEMATOCRIT. 25.7 % (36.0-48.0); HEMOGLOBIN. 8.4 g/dL (12.0-16.0); MEAN CORPUSCULAR HEMOGLOBIN 29.4 pg (28.0-32.0); MEAN CORPUSCULAR VOLUME 89.7 fL (81.0-99.0); MEAN PLATELET VOLUME 9.1 fl (7.4-10.4); PLATELET 123 x1000/uL (130-400); RED BLOOD CELL COUNT 2.86 mill/uL (4.2-5.4); RED CELL DISTRIBUTION WIDTH 16.5 % (11.6-14.6)
[2020-02-19 06:31] LABS: PHOSPHORUS 6.5 mg/dL (2.5-4.9)
[2020-02-19] MEDS: FENTANYL CITRATE 2,500 MCG in SODIUM CHLORIDE 0.9% 200 ML IV PRN (09:30)
[2020-02-19] MEDS: DEXAMETHASONE 10 MG/ML VIAL IV SCH (09:44)
[2020-02-19] MEDS: PANTOPRAZOLE SODIUM 40 MG/VIAL IV SCH ×2 (09:44→18:22)
[2020-02-19] MEDS: ASCORBIC ACID 500 MG TABLET PO SCH ×2 (09:44→22:31)
[2020-02-19] MEDS: FOLIC ACID 1MG TABLET PO SCH (09:44)
[2020-02-19] MEDS: INSULIN GLARGINE UD 100 UNITS/ML SYR SUBCUT SCH ×2 (10:55→22:00)
[2020-02-19] MEDS: BLOOD SUGAR DIAGNOSTIC STRIP TEST SCH ×3 (12:25→23:54)
[2020-02-19 12:59] LABS: NUCLEATED RED BLOOD CELLS 1 /100 WBC; PLATELET ESTIMATE SLIGHTLY DECREASED
[2020-02-19] MEDS: INSULIN LISPRO 100 UNITS/ML SUBCUT SCH ×2 (12:59→18:26)
[2020-02-19 13:13] LABS: BG BASE EXCESS 1.9 mmol/L (-2.0-2.0); BG CARBOXYHEMOGLOBIN 0.7 % (0.5-1.5); BG DEOXYHEMOGLOBIN 0.8 % (0.0-5.0); BG FRACTION INSPIRED OXYGEN 100; BG HCO3 ACT 28.4 mmol/L (22.0-26.0); BG METHEMOGLOBIN 0.3 % (0.0-1.5); BG OXYGEN SATURATION 99.2 % (92.0-98.5); BG OXYHEMOGLOBIN 98.2 % (94.0-97.0); BG PCO2 56.3 mmHg (35.0-45.0); BG PH 7.321 (7.350-7.450); BG PO2 220.8 mmHg (75.0-100.0); BG SAMPLE SITE RIGHT RADIAL; BG TOTAL HEMOGLOBIN 8.1 g/dL (12.0-18.0); BG TOTAL RESPIRATORY RATE 30 b/min; BG VENT MODE VENT - AC
[2020-02-19] MEDS ORDERED: MIDAZOLAM HCL 100 MG in SODIUM CHLORIDE 0.9% 80 ML IV PRN (15:15)
[2020-02-19] MEDS: MEROPENEM 500 MG in SODIUM CHLORIDE 0.9% 50 ML IV SCH (18:22)
[2020-02-19] MEDS: EPOETIN ALFA-EPBX 10,000 UNIT/ML VIAL SUBCUT SCH (21:00)
[2020-02-20] VITALS (93 sets, daily range): BP systolic 79–151; BP diastolic 41–81
[2020-02-20] MEDS: METOCLOPRAMIDE HCL 10MG/2ML VIAL IV SCH ×5 (00:02→23:43)
[2020-02-20] MEDS: INSULIN LISPRO 100 UNITS/ML SUBCUT SCH ×5 (00:05→23:45)
[2020-02-20] MEDS: MIDAZOLAM HCL 100 MG in DEXT 5% WATER 80 ML IV PRN ×2 (04:24→22:06)
[2020-02-20] MEDS: FENTANYL CITRATE 2,500 MCG in SODIUM CHLORIDE 0.9% 200 ML IV PRN (04:25)
[2020-02-20] MEDS: BLOOD SUGAR DIAGNOSTIC STRIP TEST SCH ×4 (06:00→23:46)
[2020-02-20] MEDS: DILTIAZEM HCL 30MG TABLET PO SCH ×3 (06:00→22:05)
[2020-02-20 06:07] LABS: CHLORIDE 99 mEq/L (98-107)
[2020-02-20 06:17] LABS: HEMATOCRIT. 25.3 % (36.0-48.0); MEAN CORPUSCULAR HEMOGLOBIN 28.6 pg (28.0-32.0); MEAN CORPUSCULAR VOLUME 90.8 fL (81.0-99.0); MEAN PLATELET VOLUME 9.5 fl (7.4-10.4); PLATELET 95 x1000/uL (130-400); RED BLOOD CELL COUNT 2.78 mill/uL (4.2-5.4); RED CELL DISTRIBUTION WIDTH 16.7 % (11.6-14.6)
[2020-02-20] MEDS: PHENYLEPHRINE 50 MG in SODIUM CHLORIDE 0.9% 245 ML IV PRN (08:30)
[2020-02-20] MEDS: FOLIC ACID 1MG TABLET PO SCH (09:14)
[2020-02-20] MEDS: PANTOPRAZOLE SODIUM 40 MG/VIAL IV SCH ×2 (09:14→17:58)
[2020-02-20] MEDS: ASCORBIC ACID 500 MG TABLET PO SCH ×2 (09:14→22:05)
[2020-02-20 09:49] LABS: BG BASE EXCESS -0.6 mmol/L (-2.0-2.0); BG CARBOXYHEMOGLOBIN 0.7 % (0.5-1.5); BG DEOXYHEMOGLOBIN 1.5 % (0.0-5.0); BG FRACTION INSPIRED OXYGEN 100; BG HCO3 ACT 24.6 mmol/L (22.0-26.0); BG METHEMOGLOBIN 0.1 % (0.0-1.5); BG OXYGEN SATURATION 98.5 % (92.0-98.5); BG OXYHEMOGLOBIN 97.7 % (94.0-97.0); BG PCO2 42.8 mmHg (35.0-45.0); BG PH 7.377 (7.350-7.450); BG PO2 137.8 mmHg (75.0-100.0); BG SAMPLE SITE RIGHT RADIAL; BG TOTAL HEMOGLOBIN 9.2 g/dL (12.0-18.0); BG VENT MODE VENT - AC
[2020-02-20] MEDS: INSULIN GLARGINE UD 100 UNITS/ML SYR SUBCUT SCH ×2 (11:04→22:31)
[2020-02-20 13:24] LABS: PLATELET ESTIMATE DECREASED
[2020-02-20 16:47] LABS: CHLORIDE 102 mEq/L (98-107)
[2020-02-20 16:52] LABS: PHOSPHORUS 7.9 mg/dL (2.5-4.9)
[2020-02-20] MEDS: SEVELAMER CARBONATE 800 MG TABLET PO SCH ×2 (17:58→23:42)
[2020-02-20] MEDS: MEROPENEM 500 MG in SODIUM CHLORIDE 0.9% 50 ML IV SCH (17:59)
[2020-02-20] MEDS: DEXTROSE 50% WATER 50ML SYRINGE IV PRN (18:07)
[2020-02-20] MEDS: IPRATROPIUM/ALBUTEROL 0.5-3(2.5)MG/3ML NEB HHN SCH (22:15)
[2020-02-21] VITALS (104 sets, daily range): BP systolic 64–142; BP diastolic 31–78
[2020-02-21] MEDS: PHENYLEPHRINE 50 MG in SODIUM CHLORIDE 0.9% 245 ML IV PRN ×4 (01:27→23:52)
[2020-02-21] MEDS: IPRATROPIUM/ALBUTEROL 0.5-3(2.5)MG/3ML NEB HHN SCH ×4 (03:24→21:31)
[2020-02-21] MEDS: FENTANYL CITRATE 2,500 MCG in SODIUM CHLORIDE 0.9% 200 ML IV PRN (04:14)
[2020-02-21] MEDS: METOCLOPRAMIDE HCL 10MG/2ML VIAL IV SCH ×4 (05:40→23:40)
[2020-02-21] MEDS: DILTIAZEM HCL 30MG TABLET PO SCH (05:40)
[2020-02-21] MEDS: SEVELAMER CARBONATE 800 MG TABLET PO SCH ×4 (05:40→23:40)
[2020-02-21] MEDS: BLOOD SUGAR DIAGNOSTIC STRIP TEST SCH ×4 (05:41→23:41)
[2020-02-21] MEDS: INSULIN LISPRO 100 UNITS/ML SUBCUT SCH ×4 (05:43→23:40)
[2020-02-21 06:11] LABS: HEMATOCRIT. 23.5 % (36.0-48.0); HEMOGLOBIN. 7.6 g/dL (12.0-16.0); MEAN CORPUSCULAR HEMOGLOBIN 29.4 pg (28.0-32.0); MEAN CORPUSCULAR VOLUME 90.5 fL (81.0-99.0); MEAN PLATELET VOLUME 9.8 fl (7.4-10.4); PLATELET 93 x1000/uL (130-400); RED CELL DISTRIBUTION WIDTH 16.1 % (11.6-14.6)
[2020-02-21] MEDS: ASCORBIC ACID 500 MG TABLET PO SCH ×2 (08:25→21:17)
[2020-02-21] MEDS: PANTOPRAZOLE SODIUM 40 MG/VIAL IV SCH ×2 (08:25→17:53)
[2020-02-21] MEDS: FOLIC ACID 1MG TABLET PO SCH (08:25)
[2020-02-21] MEDS: DILTIAZEM HCL 125 MG in DEXT 5% WATER 100 ML IV PRN (09:07)
[2020-02-21 09:56] LABS: BG BASE EXCESS -1.7 mmol/L (-2.0-2.0); BG CARBOXYHEMOGLOBIN 0.9 % (0.5-1.5); BG DEOXYHEMOGLOBIN 6.9 % (0.0-5.0); BG FRACTION INSPIRED OXYGEN 100; BG HCO3 ACT 24.4 mmol/L (22.0-26.0); BG METHEMOGLOBIN 0.3 % (0.0-1.5); BG OXYHEMOGLOBIN 91.9 % (94.0-97.0); BG PH 7.324 (7.350-7.450); BG PO2 68.4 mmHg (75.0-100.0); BG SAMPLE SITE RIGHT RADIAL; BG TOTAL HEMOGLOBIN 9.1 g/dL (12.0-18.0); BG VENT MODE VENT - AC
[2020-02-21] MEDS: INSULIN GLARGINE UD 100 UNITS/ML SYR SUBCUT SCH ×2 (10:56→21:40)
[2020-02-21] MEDS ORDERED: BISACODYL 10MG SUPP PR NR (11:15)
[2020-02-21] MEDS: DILTIAZEM HCL 60MG TABLET PO SCH ×2 (14:00→21:22)
[2020-02-21 14:54] LABS: NUCLEATED RED BLOOD CELLS 1 /100 WBC
[2020-02-21 14:55] LABS: PLATELET ESTIMATE SLIGHTLY DECREASED
[2020-02-21] MEDS: MEROPENEM 500 MG in SODIUM CHLORIDE 0.9% 50 ML IV SCH (17:54)
[2020-02-21] MEDS: MIDAZOLAM HCL 100 MG in DEXT 5% WATER 80 ML IV PRN (18:07)
[2020-02-21] MEDS: FENTANYL CITRATE/PF 2,500 MCG in SODIUM CHLORIDE 0.9% 200 ML IV PRN (21:05)
[2020-02-22] VITALS (97 sets, daily range): BP systolic 71–135; BP diastolic 31–63
[2020-02-22] MEDS: IPRATROPIUM/ALBUTEROL 0.5-3(2.5)MG/3ML NEB HHN SCH ×4 (03:52→21:34)
[2020-02-22 05:55] LABS: HEMATOCRIT. 22.4 % (36.0-48.0); HEMOGLOBIN. 7.3 g/dL (12.0-16.0); MEAN CORPUSCULAR HEMOGLOBIN 29.5 pg (28.0-32.0); MEAN PLATELET VOLUME 10.4 fl (7.4-10.4); PLATELET 98 x1000/uL (130-400); RED BLOOD CELL COUNT 2.46 mill/uL (4.2-5.4); RED CELL DISTRIBUTION WIDTH 16.5 % (11.6-14.6)
[2020-02-22] MEDS: METOCLOPRAMIDE HCL 10MG/2ML VIAL IV SCH ×4 (06:24→23:48)
[2020-02-22] MEDS: BLOOD SUGAR DIAGNOSTIC STRIP TEST SCH ×4 (06:25→23:48)
[2020-02-22] MEDS: DILTIAZEM HCL 60MG TABLET PO SCH ×3 (06:25→22:00)
[2020-02-22] MEDS: SEVELAMER CARBONATE 800 MG TABLET PO SCH ×4 (06:25→23:48)
[2020-02-22] MEDS: INSULIN LISPRO 100 UNITS/ML SUBCUT SCH ×4 (06:26→23:59)
[2020-02-22] MEDS: FOLIC ACID 1MG TABLET PO SCH (09:18)
[2020-02-22] MEDS: PANTOPRAZOLE SODIUM 40 MG/VIAL IV SCH ×2 (09:18→22:04)
[2020-02-22] MEDS: ASCORBIC ACID 500 MG TABLET PO SCH ×2 (09:18→22:05)
[2020-02-22] MEDS: INSULIN GLARGINE UD 100 UNITS/ML SYR SUBCUT SCH ×2 (09:19→23:51)
[2020-02-22] MEDS: MIDAZOLAM HCL 100 MG in DEXT 5% WATER 80 ML IV PRN (09:20)
[2020-02-22 09:38] LABS: PLATELET ESTIMATE SLIGHTLY DECREASED
[2020-02-22 10:05] LABS: BG BASE EXCESS -2.5 mmol/L (-2.0-2.0); BG CARBOXYHEMOGLOBIN 1.1 % (0.5-1.5); BG DEOXYHEMOGLOBIN 1.2 % (0.0-5.0); BG FRACTION INSPIRED OXYGEN 100; BG HCO3 ACT 24.1 mmol/L (22.0-26.0); BG METHEMOGLOBIN 0.3 % (0.0-1.5); BG OXYGEN SATURATION 98.8 % (92.0-98.5); BG OXYHEMOGLOBIN 97.4 % (94.0-97.0); BG PH 7.293 (7.350-7.450); BG SAMPLE SITE RIGHT RADIAL; BG TOTAL HEMOGLOBIN 8.5 g/dL (12.0-18.0)
[2020-02-22] MEDS: PHENYLEPHRINE 50 MG in SODIUM CHLORIDE 0.9% 245 ML IV PRN ×3 (11:37→23:30)
[2020-02-22] MEDS: FENTANYL CITRATE/PF 2,500 MCG in SODIUM CHLORIDE 0.9% 200 ML IV PRN (11:39)
[2020-02-22] MEDS: DOCUSATE SODIUM 250MG CAPSULE PO SCH ×2 (13:02→18:30)
[2020-02-22] MEDS: MEROPENEM 500 MG in SODIUM CHLORIDE 0.9% 50 ML IV SCH (16:04)
[2020-02-22] MEDS ORDERED: NOREPINEPHRINE 32 MG in DEXT 5% WATER 218 ML IV PRN (18:00)
[2020-02-22] MEDS ORDERED: VASOPRESSIN 20 UNIT in SODIUM CHLORIDE 0.9% 99 ML IV PRN (18:00)
[2020-02-22 19:37] LABS: HEMATOCRIT 22.6 % (36.0-48.0)
[2020-02-22] MEDS: LACTULOSE 20G/30ML UDC PO SCH (22:04)
[2020-02-23] VITALS (96 sets, daily range): BP systolic 70–142; BP diastolic 40–77
[2020-02-23] MEDS: IPRATROPIUM/ALBUTEROL 0.5-3(2.5)MG/3ML NEB HHN SCH ×4 (01:19→16:22)
[2020-02-23] MEDS: MIDAZOLAM HCL 100 MG in SODIUM CHLORIDE 0.9% 80 ML IV PRN (02:17)
[2020-02-23] MEDS: PHENYLEPHRINE 50 MG in SODIUM CHLORIDE 0.9% 245 ML IV PRN ×4 (03:46→22:11)
[2020-02-23] MEDS: FENTANYL CITRATE/PF 2,500 MCG in SODIUM CHLORIDE 0.9% 200 ML IV PRN (04:17)
[2020-02-23] MEDS: INSULIN LISPRO 100 UNITS/ML SUBCUT SCH ×4 (06:00→23:39)
[2020-02-23 06:26] LABS: HEMATOCRIT. 24.3 % (36.0-48.0); HEMOGLOBIN. 7.8 g/dL (12.0-16.0); MEAN CORPUSCULAR HEMOGLOBIN 29.3 pg (28.0-32.0); MEAN CORPUSCULAR VOLUME 91.2 fL (81.0-99.0); MEAN PLATELET VOLUME 9.9 fl (7.4-10.4); PLATELET 100 x1000/uL (130-400); RED BLOOD CELL COUNT 2.66 mill/uL (4.2-5.4); RED CELL DISTRIBUTION WIDTH 16.3 % (11.6-14.6)
[2020-02-23] MEDS: SEVELAMER CARBONATE 800 MG TABLET PO SCH ×4 (06:41→23:39)
[2020-02-23] MEDS: DILTIAZEM HCL 60MG TABLET PO SCH (06:41)
[2020-02-23] MEDS: BLOOD SUGAR DIAGNOSTIC STRIP TEST SCH ×4 (06:42→23:39)
[2020-02-23] MEDS: METOCLOPRAMIDE HCL 10MG/2ML VIAL IV SCH ×4 (06:42→23:39)
[2020-02-23 06:55] LABS: CHLORIDE 98 mEq/L (98-107)
[2020-02-23 07:30] LABS: PHOSPHORUS 9.4 mg/dL (2.5-4.9)
[2020-02-23] MEDS: DOCUSATE SODIUM 250MG CAPSULE PO SCH ×2 (08:25→17:18)
[2020-02-23] MEDS: FOLIC ACID 1MG TABLET PO SCH (08:25)
[2020-02-23] MEDS: ASCORBIC ACID 500 MG TABLET PO SCH ×2 (08:25→20:37)
[2020-02-23] MEDS: PANTOPRAZOLE SODIUM 40 MG/VIAL IV SCH ×2 (08:25→17:19)
[2020-02-23 08:55] LABS: NUCLEATED RED BLOOD CELLS 1 /100 WBC; PLATELET ESTIMATE DECREASED
[2020-02-23] MEDS: INSULIN GLARGINE UD 100 UNITS/ML SYR SUBCUT SCH ×2 (10:00→23:38)
[2020-02-23 10:07] LABS: BG BASE EXCESS -6.1 mmol/L (-2.0-2.0); BG CARBOXYHEMOGLOBIN 0.8 % (0.5-1.5); BG DEOXYHEMOGLOBIN 10.3 % (0.0-5.0); BG FRACTION INSPIRED OXYGEN 100; BG METHEMOGLOBIN 0.2 % (0.0-1.5); BG OXYGEN SATURATION 89.6 % (92.0-98.5); BG OXYHEMOGLOBIN 88.7 % (94.0-97.0); BG PCO2 49.7 mmHg (35.0-45.0); BG PH 7.244 (7.350-7.450); BG PO2 66.3 mmHg (75.0-100.0); BG SAMPLE SITE RIGHT RADIAL; BG TOTAL HEMOGLOBIN 8.8 g/dL (12.0-18.0); BG VENT MODE VENT - AC/VC
[2020-02-23] MEDS: MIDAZOLAM HCL 100 MG in DEXT 5% WATER 80 ML IV PRN (13:25)
[2020-02-23] MEDS: DILTIAZEM HCL 90MG TABLET PO SCH ×3 (17:19→22:16)
[2020-02-23] MEDS: MEROPENEM 500 MG in SODIUM CHLORIDE 0.9% 50 ML IV SCH (17:21)
[2020-02-23] MEDS: LACTULOSE 20G/30ML UDC PO SCH (20:37)
[2020-02-24] VITALS (98 sets, daily range): BP systolic 75–133; BP diastolic 36–89
[2020-02-24] MEDS: MIDAZOLAM HCL 100 MG in SODIUM CHLORIDE 0.9% 80 ML IV PRN ×2 (01:42→06:58)
[2020-02-24] MEDS: PHENYLEPHRINE 50 MG in SODIUM CHLORIDE 0.9% 245 ML IV PRN ×3 (02:23→13:42)
[2020-02-24] MEDS: FENTANYL CITRATE/PF 2,500 MCG in SODIUM CHLORIDE 0.9% 200 ML IV PRN (05:08)
[2020-02-24] MEDS: METOCLOPRAMIDE HCL 10MG/2ML VIAL IV SCH ×3 (05:13→17:04)
[2020-02-24] MEDS: DILTIAZEM HCL 90MG TABLET PO SCH ×3 (05:14→21:01)
[2020-02-24] MEDS: SEVELAMER CARBONATE 800 MG TABLET PO SCH ×3 (05:14→17:04)
[2020-02-24] MEDS: BLOOD SUGAR DIAGNOSTIC STRIP TEST SCH ×3 (05:50→18:45)
[2020-02-24 06:08] LABS: HEMATOCRIT. 24.7 % (36.0-48.0); MEAN CORPUSCULAR HEMOGLOBIN 29.6 pg (28.0-32.0); MEAN CORPUSCULAR VOLUME 91.2 fL (81.0-99.0); MEAN PLATELET VOLUME 9.9 fl (7.4-10.4); PLATELET 94 x1000/uL (130-400); RED BLOOD CELL COUNT 2.71 mill/uL (4.2-5.4); RED CELL DISTRIBUTION WIDTH 16.6 % (11.6-14.6)
[2020-02-24 06:15] LABS: CHLORIDE 100 mEq/L (98-107)
[2020-02-24 06:46] LABS: PHOSPHORUS 8.7 mg/dL (2.5-4.9)
[2020-02-24] MEDS: INSULIN LISPRO 100 UNITS/ML SUBCUT SCH ×3 (07:01→19:12)
[2020-02-24] MEDS: IPRATROPIUM/ALBUTEROL 0.5-3(2.5)MG/3ML NEB HHN SCH ×3 (09:28→21:01)
[2020-02-24] MEDS: FOLIC ACID 1MG TABLET PO SCH (09:36)
[2020-02-24] MEDS: PANTOPRAZOLE SODIUM 40 MG/VIAL IV SCH ×2 (09:36→17:04)
[2020-02-24] MEDS: DOCUSATE SODIUM 250MG CAPSULE PO SCH ×2 (09:36→17:04)
[2020-02-24] MEDS: ASCORBIC ACID 500 MG TABLET PO SCH ×2 (09:37→21:00)
[2020-02-24] MEDS: INSULIN GLARGINE UD 100 UNITS/ML SYR SUBCUT SCH (09:38)
[2020-02-24 10:43] LABS: NUCLEATED RED BLOOD CELLS 3 /100 WBC; PLATELET ESTIMATE DECREASED
[2020-02-24] MEDS ORDERED: LIDOCAINE HCL 1% 20ML VIAL (Pyxis) INJ ONE (12:55)
[2020-02-24 13:23] LABS: BG BASE EXCESS -5.9 mmol/L (-2.0-2.0); BG CARBOXYHEMOGLOBIN 0.7 % (0.5-1.5); BG DEOXYHEMOGLOBIN 9.6 % (0.0-5.0); BG FRACTION INSPIRED OXYGEN 100; BG HCO3 ACT 21.7 mmol/L (22.0-26.0); BG METHEMOGLOBIN 0.3 % (0.0-1.5); BG OXYGEN SATURATION 90.3 % (92.0-98.5); BG OXYHEMOGLOBIN 89.4 % (94.0-97.0); BG PCO2 53.8 mmHg (35.0-45.0); BG PH 7.223 (7.350-7.450); BG PO2 69.4 mmHg (75.0-100.0); BG SAMPLE SITE LEFT RADIAL; BG TOTAL HEMOGLOBIN 8.7 g/dL (12.0-18.0); BG TOTAL RESPIRATORY RATE 38 b/min; BG VENT MODE VENT - AC
[2020-02-24 13:28] LABS: PARTIAL THROMBOPLASTIN TIME 42.4 sec (23.4-31.0); PROTHROMBIN TIME 10.9 sec (9.6-11.0)
[2020-02-24] MEDS: ERGOCALCIFEROL 50000UNITS CAPSULE PO SCH (13:42)
[2020-02-24] MEDS: MEROPENEM 500 MG in SODIUM CHLORIDE 0.9% 50 ML IV SCH (17:13)
[2020-02-24] MEDS: LACTULOSE 20G/30ML UDC PO SCH (21:00)
[2020-02-25] VITALS (87 sets, daily range): BP systolic 84–153; BP diastolic 44–77
[2020-02-25] MEDS: METOCLOPRAMIDE HCL 10MG/2ML VIAL IV SCH ×4 (00:05→17:42)
[2020-02-25] MEDS: INSULIN GLARGINE UD 100 UNITS/ML SYR SUBCUT SCH ×3 (00:06→22:00)
[2020-02-25] MEDS: INSULIN LISPRO 100 UNITS/ML SUBCUT SCH ×5 (00:06→23:47)
[2020-02-25] MEDS: BLOOD SUGAR DIAGNOSTIC STRIP TEST SCH ×5 (00:07→23:47)
[2020-02-25] MEDS: IPRATROPIUM/ALBUTEROL 0.5-3(2.5)MG/3ML NEB HHN SCH ×4 (01:47→21:15)
[2020-02-25] MEDS: PHENYLEPHRINE 50 MG in SODIUM CHLORIDE 0.9% 245 ML IV PRN ×4 (02:17→20:07)
[2020-02-25] MEDS: DILTIAZEM HCL 90MG TABLET PO SCH ×3 (05:27→21:17)
[2020-02-25] MEDS: SEVELAMER CARBONATE 800 MG TABLET PO SCH ×5 (05:28→23:48)
[2020-02-25 06:13] LABS: HEMATOCRIT. 24.6 % (36.0-48.0); HEMOGLOBIN. 7.9 g/dL (12.0-16.0); MEAN CORPUSCULAR HEMOGLOBIN 29.2 pg (28.0-32.0); MEAN CORPUSCULAR VOLUME 90.7 fL (81.0-99.0); MEAN PLATELET VOLUME 9.7 fl (7.4-10.4); PLATELET 81 x1000/uL (130-400); RED BLOOD CELL COUNT 2.72 mill/uL (4.2-5.4); RED CELL DISTRIBUTION WIDTH 16.9 % (11.6-14.6)
[2020-02-25 07:18] LABS: PHOSPHORUS 8.9 mg/dL (2.5-4.9)
[2020-02-25] MEDS: DOCUSATE SODIUM 250MG CAPSULE PO SCH ×2 (08:05→17:00)
[2020-02-25] MEDS: ASCORBIC ACID 500 MG TABLET PO SCH ×2 (08:05→21:00)
[2020-02-25] MEDS: PANTOPRAZOLE SODIUM 40 MG/VIAL IV SCH ×2 (08:05→17:00)
[2020-02-25] MEDS: FOLIC ACID 1MG TABLET PO SCH (08:05)
[2020-02-25 10:02] LABS: NUCLEATED RED BLOOD CELLS 5 /100 WBC; PLATELET ESTIMATE DECREASED
[2020-02-25] MEDS: DILTIAZEM HCL 125 MG in DEXT 5% WATER 100 ML IV PRN ×2 (10:43→21:56)
[2020-02-25] MEDS: DEXTROSE 50% WATER 50ML SYRINGE IV PRN ×3 (12:51→23:57)
[2020-02-25 13:14] LABS: BG BASE EXCESS -4.8 mmol/L (-2.0-2.0); BG CARBOXYHEMOGLOBIN 0.7 % (0.5-1.5); BG DEOXYHEMOGLOBIN 0.8 % (0.0-5.0); BG FRACTION INSPIRED OXYGEN 100; BG HCO3 ACT 20.8 mmol/L (22.0-26.0); BG METHEMOGLOBIN 0.6 % (0.0-1.5); BG OXYGEN SATURATION 99.2 % (92.0-98.5); BG OXYHEMOGLOBIN 97.9 % (94.0-97.0); BG PCO2 40.1 mmHg (35.0-45.0); BG PH 7.332 (7.350-7.450); BG PO2 236.2 mmHg (75.0-100.0); BG SAMPLE SITE LEFT BRACHIAL; BG TOTAL HEMOGLOBIN 9.1 g/dL (12.0-18.0); BG TOTAL RESPIRATORY RATE 39 b/min; BG VENT MODE VENT - AC
[2020-02-25] MEDS: DEXT 5%/0.45% NACL 1000ML 1,000 ML IV SCH (17:46)
[2020-02-25] MEDS: LACTULOSE 20G/30ML UDC PO SCH (21:00)
[2020-02-26] VITALS (104 sets, daily range): BP systolic 52–192; BP diastolic 23–160
[2020-02-26] MEDS: METOCLOPRAMIDE HCL 10MG/2ML VIAL IV SCH ×4 (00:03→18:24)
[2020-02-26 00:55] LABS: ETHANOL BLOOD < 10 mg/dL
[2020-02-26 01:01] LABS: T4 FREE 0.59 ng/dL (0.76-1.46)
[2020-02-26] MEDS: PHENYLEPHRINE 50 MG in SODIUM CHLORIDE 0.9% 245 ML IV PRN ×2 (01:36→14:33)
[2020-02-26 02:05] LABS: FOLIC ACID (FOLATE) SERUM 7.2 ng/mL (>5.38)
[2020-02-26] MEDS: IPRATROPIUM/ALBUTEROL 0.5-3(2.5)MG/3ML NEB HHN SCH ×2 (02:52→09:16)
[2020-02-26] MEDS: DILTIAZEM HCL 90MG TABLET PO SCH ×3 (05:09→22:00)
[2020-02-26] MEDS: SEVELAMER CARBONATE 800 MG TABLET PO SCH ×3 (05:10→18:00)
[2020-02-26] MEDS: BLOOD SUGAR DIAGNOSTIC STRIP TEST SCH ×3 (05:37→18:17)
[2020-02-26] MEDS: INSULIN LISPRO 100 UNITS/ML SUBCUT SCH ×3 (05:37→18:00)
[2020-02-26] MEDS: DILTIAZEM HCL 125 MG in DEXT 5% WATER 100 ML IV PRN ×2 (06:14→12:33)
[2020-02-26 06:29] LABS: HEMATOCRIT. 21.5 % (36.0-48.0); MEAN CORPUSCULAR HEMOGLOBIN 29.3 pg (28.0-32.0); MEAN CORPUSCULAR VOLUME 91.3 fL (81.0-99.0); MEAN PLATELET VOLUME 9.4 fl (7.4-10.4); PLATELET 67 x1000/uL (130-400); RED BLOOD CELL COUNT 2.36 mill/uL (4.2-5.4); RED CELL DISTRIBUTION WIDTH 17.3 % (11.6-14.6)
[2020-02-26 06:35] LABS: CHLORIDE 101 mEq/L (98-107)
[2020-02-26 06:42] LABS: PHOSPHORUS 6.3 mg/dL (2.5-4.9)
[2020-02-26 06:45] LABS: HEMOGLOBIN. 6.9 g/dL (12.0-16.0)
[2020-02-26] MEDS: INSULIN GLARGINE UD 100 UNITS/ML SYR SUBCUT SCH ×2 (10:00→22:00)
[2020-02-26] MEDS: DEXT 5%/0.45% NACL 1000ML 1,000 ML IV SCH ×2 (10:00→17:40)
[2020-02-26 11:27] LABS: NUCLEATED RED BLOOD CELLS 3 /100 WBC; PLATELET ESTIMATE DECREASED
[2020-02-26] MEDS ORDERED: DILTIAZEM HCL 5MG/ML 5ML VIAL IV PRN (11:30)
[2020-02-26] MEDS ORDERED: IPRATROPIUM/ALBUTEROL 0.5-3(2.5)MG/3ML NEB HHN PRN (11:30)
[2020-02-26] MEDS: ASCORBIC ACID 500 MG TABLET PO SCH ×2 (11:41→22:35)
[2020-02-26] MEDS: DOCUSATE SODIUM 250MG CAPSULE PO SCH ×2 (11:41→17:00)
[2020-02-26] MEDS: FOLIC ACID 1MG TABLET PO SCH (11:41)
[2020-02-26] MEDS: PANTOPRAZOLE SODIUM 40 MG/VIAL IV SCH ×2 (11:41→18:23)
[2020-02-26] MEDS ORDERED: IPRATROPIUM/ALBUTEROL 0.5-3(2.5)MG/3ML NEB HHN SCH (12:00)
[2020-02-26] MEDS: DILTIAZEM HCL 125 MG in DEXT 5% WATER 100 ML IV SCH ×2 (14:31→22:37)
[2020-02-26] MEDS: IPRATROPIUM BROMIDE (0.02%) 0.5MG/2.5ML NEB HHN SCH ×2 (16:25→22:40)
[2020-02-26 16:32] LABS: BG BASE EXCESS -3.6 mmol/L (-2.0-2.0); BG CARBOXYHEMOGLOBIN 0.5 % (0.5-1.5); BG DEOXYHEMOGLOBIN 1.2 % (0.0-5.0); BG FRACTION INSPIRED OXYGEN 100; BG METHEMOGLOBIN 0.6 % (0.0-1.5); BG OXYGEN SATURATION 98.8 % (92.0-98.5); BG OXYHEMOGLOBIN 97.7 % (94.0-97.0); BG PCO2 49.1 mmHg (35.0-45.0); BG PH 7.288 (7.350-7.450); BG PO2 183.8 mmHg (75.0-100.0); BG SAMPLE SITE RIGHT RADIAL; BG TOTAL HEMOGLOBIN 9.2 g/dL (12.0-18.0); BG VENT MODE VENT - AC
[2020-02-26] MEDS ORDERED: SUCRALFATE 1 G/10 ML UDC PO SCH (18:00)
[2020-02-26] MEDS: ACETAMINOPHEN 325MG TABLET PO PRN (18:24)
[2020-02-26] MEDS ORDERED: HEPARIN SODIUM 1,000 UNIT/1ML VIAL IV NR (18:34)
[2020-02-26] MEDS ORDERED: DOPAMINE 800MG PREMIX (DOUBLE) 250 ML IV PRN (22:00)
[2020-02-26] MEDS ORDERED: EPINEPHRINE 1:1000 1 MG/ML AMP INJ ONE (22:40)
[2020-02-26] MEDS: LACTULOSE 20G/30ML UDC PO SCH (22:42)
[2020-02-26] MEDS ORDERED: CEFEPIME 2,000 MG in DEXT 5% WATER 100 ML IV SCH (23:00)
== END 2020-02-26 23:50 | disposition expired | DRG 870 ==
LOC: ER 22:36 → MICUSO 02-09 01:59 → EDBEDREQTM 02-09 02:03 → 7WST 02-10 12:39 → CVICU 02-16 12:47
PROVIDERS: ADMIT Internal Medicine; ATTEND Internal Medicine
PROC: 5A09557 Assistance with Respiratory Ventilation, Greater than 96 Consecutive Hours, Continuous Positive Airway Pressure (ICD-10-PCS; 2020-02-10)
PROC: 3E1M39Z Irrigation of Peritoneal Cavity using Dialysate, Percutaneous Approach (ICD-10-PCS; 2020-02-10)
PROC: 30233N1 Transfusion of Nonautologous Red Blood Cells into Peripheral Vein, Percutaneous Approach (ICD-10-PCS; 2020-02-14)
PROC: 5A1955Z Respiratory Ventilation, Greater than 96 Consecutive Hours (ICD-10-PCS; principal; 2020-02-16)
PROC: 0BH17EZ Insertion of Endotracheal Airway into Trachea, Via Natural or Artificial Opening (ICD-10-PCS; 2020-02-16)
PROC: 06HY33Z Insertion of Infusion Device into Lower Vein, Percutaneous Approach (ICD-10-PCS; 2020-02-16)
PROC: 5A1D70Z Performance of Urinary Filtration, Intermittent, Less than 6 Hours Per Day (ICD-10-PCS; 2020-02-24)
PROC: 02HV33Z Insertion of Infusion Device into Superior Vena Cava, Percutaneous Approach (ICD-10-PCS; 2020-02-24)
PROC: B548ZZA Ultrasonography of Superior Vena Cava, Guidance (ICD-10-PCS; 2020-02-24)
PROC: 5A12012 Performance of Cardiac Output, Single, Manual (ICD-10-PCS; 2020-02-26)
PROC: 5A1D70Z Performance of Urinary Filtration, Intermittent, Less than 6 Hours Per Day (ICD-10-PCS; 2020-02-26)
DX: A41.89 Other specified sepsis (principal); U07.1 COVID-19; J96.01 Acute respiratory failure with hypoxia; N18.6 End stage renal disease; G92 Toxic encephalopathy; J12.82 Pneumonia due to coronavirus disease 2019; I63.81 Other cerebral infarction due to occlusion or stenosis of small artery; I50.43 Acute on chronic combined systolic (congestive) and diastolic (congestive) heart failure; I13.2 Hypertensive heart and chronic kidney disease with heart failure and with stage 5 chronic kidney disease, or end stage renal disease; I48.92 Unspecified atrial flutter; E87.1 Hypo-osmolality and hyponatremia; I47.1 Supraventricular tachycardia; I48.19 Other persistent atrial fibrillation; R18.8 Other ascites; D68.59 Other primary thrombophilia; K92.1 Melena; R65.20 Severe sepsis without septic shock; E78.5 Hyperlipidemia, unspecified; E11.22 Type 2 diabetes mellitus with diabetic chronic kidney disease; E87.6 Hypokalemia; E11.65 Type 2 diabetes mellitus with hyperglycemia; D63.8 Anemia in other chronic diseases classified elsewhere; D69.6 Thrombocytopenia, unspecified; I46.9 Cardiac arrest, cause unspecified; E78.00 Pure hypercholesterolemia, unspecified; E83.39 Other disorders of phosphorus metabolism; Z66 Do not resuscitate; R74.01 Elevation of levels of liver transaminase levels; Z78.1 Physical restraint status; Z79.4 Long term (current) use of insulin; Z99.2 Dependence on renal dialysis; Z86.73 Personal history of transient ischemic attack (TIA), and cerebral infarction without residual deficits; Z79.899 Other long term (current) drug therapy; Z79.82 Long term (current) use of aspirin
CPT/HCPCS: 36415; 36600; 71045; 74018; 76700; 76937; 80048; 80053; 80307; 80320; 82140; 82270; 82375; 82607; 82728; 82746; 82805; 82962; 83036; 83540; 83550; 83735; 83880; 84100; 84145; 84439; 84443; 84478; 84481; 84484; 85014; 85018; 85025; 85044; 85049; 85379; 85384; 86140; 86850; 86900; 86920; 87070; 93005; 94003; 94640; 94660; 99291; C1752; C1893; C9113; C9803; J0692; J0885; J1100; J1644; J1650; J1720; J1815; J2060; J2185; J2250; J2370; J2405; J2704; J2765; J3010; J3480; J3490; J7040; J7050; J7060; P9016; U0003; A4315; G0480